=== PATIENT | male | born 1980 | race Caucasian/White ===

== ENCOUNTER 2017-01-05 17:07 | Emergency (ER) | payer OTHER ==
[~2017-01-05] VITALS: Ht 190.5 cm; Wt 145.0 kg
[~2017-01-05 17:07] MED LIST: CRUTCHES AXILLARY; HYDR-3533 PO; IBUP800 PO
[2017-01-05 17:09] VITALS: BP 135/78; PULSE 99; RESP 16; TEMP 98.1; O2SAT 98
--- NOTE | 2017-01-05 17:16 | PD ---
Physical Exam Time Seen by Provider: 17:14 Narrative 36 y/o male here for evaluation of R heel pain for 2-3 years. Vital signs reviewed. Seen at triage desk. Awaiting bed placement. Data Data Last Documented VS Vital Signs Date Time Temp Pulse Resp B/P Pulse Ox O2 Delivery O2 Flow Rate FiO2 01/05/17 17:09 98.1 99 16 135/78 98 MDM Medical Record Reviewed: Yes Supervised Visit with AMY: Des Earl Jan 05, 2017 17:16
--- NOTE | 2017-01-05 18:43 | PD ---
HPI Chief Complaint: Pain: Acute or Chronic Time Seen by Provider: 18:42 Travel History International Travel<30 days: No Contact w/Intl Traveler<30days: No Traveled to known affect area: No History of Present Illness HPI 36 YO M presents to the ED for evaluation of right heel pain. Patient states this is chronic, only worsened by his new job. 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 He denies known injury to the area. He has taken a few Aleve with no improvement of symptoms. PFSH Past Medical History Blood Disorders: No Cancer: No Cardiovascular Problems: No Diabetes: No Diminished Hearing: No Endocrine: No Genitourinary: No Immune Disorder: No Musculoskeletal: No Neurologic: No Psychiatric: No Reproductive: No Respiratory: No Social History Alcohol Use: Yes (OCC) Tobacco Use: Yes (1/2PPD) Substance Use: No Allergies-Medications (Allergen,Severity, Reaction): Coded Allergies: No Known Allergies (Unverified , 01/05/17) Reported Meds & Prescriptions Reported Meds & Active Scripts Active Meloxicam 7.5 Mg Tab 7.5 Mg PO BID Review of Systems Except as stated in HPI: all other systems reviewed are Neg Physical Exam Narrative GENERAL: Well-nourished, well-developed white male in no acute distress. SKIN: Focused skin assessment warm/dry. Well-healed skin grafts from prior fasciotomy of the left lower leg. HEAD: Normocephalic. EYES: No scleral icterus. No injection or drainage. NECK: Supple, trachea midline. No JVD or lymphadenopathy. CARDIOVASCULAR: Regular rate and rhythm without murmurs, gallops, or rubs. RESPIRATORY: Breath sounds equal bilaterally. No accessory muscle use. GASTROINTESTINAL: Abdomen soft, non-tender, nondistended. MUSCULOSKELETAL: No cyanosis, or edema. FOCUSED RIGHT LOWER EXTREMITY EXAM: 2+ radial pulse. Patient has full, active, painless ROM of the extremity. He has point tenderness to palpation of the calcaneus. There is a mild erythema and edema in the area as well. Sensation intact to light touch distally. BACK: Nontender without obvious deformity. No CVA tenderness. Data Data Last Documented VS Vital Signs Date Time Temp Pulse Resp B/P Pulse Ox O2 Delivery O2 Flow Rate FiO2 01/05/17 17:09 98.1 99 16 135/78 98 Orders Foot, Heel Only ([id number]) (01/05/17 18:54) Ketorolac Inj (Toradol Inj) (01/05/17 19:00) MDM Medical Decision Making Medical Screen Exam Complete: Yes Emergency Medical Condition: Yes Differential Diagnosis heel spur versus arthritis versus ankle sprain versus muscular skeletal pain versus other Narrative Course 36 YO M presents to the ED for evaluation of right heel pain. Patient states this is chronic, only worsened by his new job. 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 He denies known injury to the area. Vitals reviewed. Physical exam reveals mild erythema, edema and point tenderness of the plantar aspect of the calcaneus. I suspect this is a bone spur. X-rays confirm this suspicion. Patient was administered IM Toradol. He is prescribed a short course of meloxicam. He is instructed to rest, ice, compress and elevate the extremity, take medications as prescribed and follow up with the color finisher. He was provided a note for work for light duty if possible. He indicated understanding of the instructions and is agreeable to care plan. Patient is stable and discharged home. Diagnosis Primary Impression: Heel spur Qualified Code: M77.31 - Heel spur, right Referrals: [facility] Patient Instructions: General Instructions, Heel Spur (ED) Additional Instructions: Rest, ice, elevate the extremity. Apply ice no longer than 10-15 minutes per hour a few times a day. Meloxicam twice a day as prescribed. Wear compression socks daily as discussed. Return to normal, gentle activity as tolerated. No running, jumping activities for the next few weeks. Follow up with orthopedist or your primary care provider. Return to the ED for any urgent or emergent medical condition. Med/Other Pt SpecificInfo: Prescription(s) given Scripts Meloxicam 7.5 Mg Tab7.5 Mg PO BID #20 TAB Ref 0 Prov:Zohaib Juarez MD 01/05/17 Disposition: 01 DISCHARGE HOME Condition: Stable Chen Nuno Jan 05, 2017 18:42
[2017-01-05] MEDS ORDERED: KETOROLAC TROMETHAMINE 60 MG/2 ML (IM) VIAL IM ONE (19:00)
--- NOTE | 2017-01-05 19:31 | RADRPT ---
EXAM DATE/TIME: 01/05/2017 19:08 [facility] COMPARISON: No previous studies available for comparison. INDICATIONS : Right heel pain since starting work again, no known injury. MEDICAL HISTORY : None. SURGICAL HISTORY : None. ENCOUNTER: Initial ACUITY: 1 day PAIN SCORE: 8/10 LOCATION: Right heel FINDINGS: Two view examination of the right heel demonstrates the trabecula to be intact with no evidence of fr acture. There is a normal calcaneal angle. There is a small to moderate spur off the inferior calca neus at the site of attachment of the plantar aponuerosis. The soft tissues are of normal thickness. CONCLUSION: Mild to moderate spur off the inferior calcaneus. Darren Heck MD on January 05, 2017 at 19:28 Board Certified Radiologist. This report was verified electronically.
[2017-01-05] MEDS ORDERED: MELO7.5T4 PO (19:34)
== END 2017-01-05 20:25 | disposition home or self-care (01) ==
LOC: NEPD 17:07
DX: M77.31 Calcaneal spur, right foot (principal); F17.200 Nicotine dependence, unspecified, uncomplicated
CPT/HCPCS: 73650; 96372; 99284; J1885